=== PATIENT | male | born 1965 ===

== ENCOUNTER 2016-10-01 09:30 | Inpatient (IN) | payer MEDICARE ==
[2016-10-01 09:30] VITALS: BMI 31.8
[2016-10-01 11:16] LABS: BASO # 0.1 K/uL (0.0-0.2); BASO % 0.6 % (0.0-2.0); EOS % 0.2 % (0.0-4.0); HEMOGLOBIN 13.3 g/dL (12.0-18.0); LYMPH # 2.2 K/uL (1.0-4.3); LYMPH % 10.5 % (20.0-40.0); MEAN CELL VOLUME 93.9 fl (80.0-94.0); MEAN CORPUSCULAR HEMOGLOBIN 31.9 pg (27.0-31.0); MEAN PLATELET VOLUME 7.8 fl (7.2-11.7); MONO # 1.5 K/uL (0.0-0.8); NEUT # 17.4 K/uL (1.8-7.0); NEUT % 81.7 % (50.0-75.0); PLATELET COUNT 203 K/uL (130-400); RBC 4.18 Mil/uL (4.40-5.90); WHITE BLOOD COUNT 21.3 K/uL (4.8-10.8)
[2016-10-01 11:25] LABS: ALB/GLOB RATIO 1.2 (1.0-2.1); ALBUMIN 4.1 g/dL (3.5-5.0); ALT/SGPT 27 U/L (21-72); AST/SGOT 14 U/L (17-59); BLOOD UREA NITROGEN 8 mg/dl (9-20); CALCIUM 8.8 mg/dL (8.4-10.2); GFR AFRICAN-AMERICAN > 60; GFR NON-AFRICAN AMERICAN > 60
[2016-10-01 12:13] LABS: BANDS 2 % (0-2); LYMPHOCYTE 18 % (20-50); MONOCYTE 1 % (0-10); NEUTROPHIL 79 % (42-75); PLATELET ESTIMATE NORMAL (NORMAL); TOTAL CELLS COUNTED 100
[2016-10-01 12:14] LABS: ANISOCYTOSIS SLIGHT; LARGE PLATELETS PRESENT; POIKILOCYTOSIS SLIGHT; STOMATOCYTES SLIGHT
--- NOTE | 2016-10-01 12:16 | ED PDOC ---
HPI: Male Pain Time Seen by Provider: 10/01/16 09:38 Chief Complaint (Nursing): Male Genitourinary Chief Complaint (Provider): R groin/testicle pain History Per: Patient History/Exam Limitations: no limitations (3) Onset/Duration Of Symptoms: Days Quality Of Discomfort: Sharp Associated Symptoms: Nausea, Urinary Symptoms Alleviating Factors: None Additional History Per: Prior Records Additional Complaint(s): 51yo male hx HIV (undetectable VL per him) presents c/o 3 days of R testicle pain, now with groin pain and urinary frequency. Denies trauma or injury to groin. States R testicle now enlarged compared to left. Denies penile discharge , fever or back pain. States not sexually active in "quite some time" and only known STD was syphilis many years ago. Past Medical History Reviewed: Historical Data, Nursing Documentation, Vital Signs Vital Signs: Last Vital Signs Temp 97 F L 10/01/16 09:35 Pulse 69 10/01/16 09:35 Resp BP 114/72 10/01/16 09:35 Pulse Ox 99 10/01/16 09:35 - Medical History PMH: Depression, Gastritis, HIV, HTN, Hypercholesterolemia Denies: Chronic Kidney Disease - Family History Family History: States: Unknown Family Hx - Social History Current smoker - smoking cessation education provided: No Drugs: Denies - Immunization History Hx Tetanus Toxoid Vaccination: No Hx Influenza Vaccination: No - Home Medications Home Medications: Ambulatory Orders Medication Instructions Recorded Dolutegravir Sodium [Tivicay] 50 mg PO DAILY 07/19/14 Emtricitabine/Tenofovir Diso 1 tab PO DAILY 07/19/14 [Truvada 200 MG-300 MG] Atomoxetine HCl [Strattera] 100 mg PO QAM 10/01/16 Omeprazole [Omeprazole] 20 mg PO DAILY 10/01/16 - Allergies Allergies/Adverse Reactions: Allergies Allergy/AdvReac Type Severity Reaction Status Date / Time ciprofloxacin [From Cipro] Allergy RASH Verified 10/01/16 09:33 ciprofloxacin HCl Allergy RASH Verified 10/01/16 09:33 [From Cipro] Sulfa (Sulfonamide Allergy RASH Verified 10/01/16 09:33 Antibiotics) Review of Systems Constitutional: Negative for: Fever, Chills Cardiovascular: Negative for: Chest Pain, Palpitations Respiratory: Negative for: Cough, Shortness of Breath Gastrointestinal: Positive for: Abdominal Pain. Negative for: Nausea, Vomiting Genitourinary Male: Positive for: Frequency, Scrotal Pain. Negative for: Hematuria Musculoskeletal: Negative for: Neck Pain, Arm Pain, Back Pain Skin: Negative for: Rash, Lesions, Jaundice Neurological: Negative for: Weakness, Numbness, Headache, Dizziness Psych: Positive for: Depression. Negative for: Anxiety, Suicidal ideation Physical Exam - Reviewed Nursing Documentation Reviewed: Yes Vital Signs Reviewed: Yes - Physical Exam Appears: Positive for: Well, Non-toxic, No Acute Distress Head Exam: Positive for: ATRAUMATIC, NORMAL INSPECTION, NORMOCEPHALIC Skin: Positive for: Normal Color, Warm, DRY Eye Exam: Positive for: EOMI, Normal appearance, PERRL ENT: Positive for: Normal ENT Inspection Neck: Positive for: Normal, Painless ROM Cardiovascular/Chest: Positive for: Regular Rate, Rhythm Respiratory: Positive for: CNT, Normal Breath Sounds Gastrointestinal/Abdominal: Positive for: Bowel Sounds, Soft, Tenderness (mild R groin tenderness) Male Genital Exam: Positive for: inguinal tenderness (R), scrotum tenderness (R) , testicular tenderness (R) (+enlarged R testicle). Negative for: erythema Back: Positive for: Normal Inspection Extremity: Positive for: Normal ROM Neurologic/Psych: Positive for: Alert, personal development coach II-XII (intact), Oriented. Negative for: Motor/Sensory Deficits, Aphasia, Facial Droop - Laboratory Results Result Diagrams: 10/01/16 11:10 10/01/16 11:10 - ECG O2 Sat by Pulse Oximetry: 99 Medical Decision Making Medical Decision Making: Workup initiated for acute testicle/ orchitis/ hernia (less likely). bloodwork reviewed, reveals elevated WBC at 21. US testicle: Accession No. : [id number] Patient Name / ID : ISRA LAW / [id number] Exam Date : 10/01/2016 11:47:09 ( Approved ) Study Comment : Sex / Age : M / 51Y Creator : Masoud Rowell MD Dictator : Masoud Rowell MD Government Services Professional : Paver Operator : Masoud Rowell MD Approver2 : Report Date : 10/01/2016 12:33:12 My Comment : HISTORY: R testicular pain/swelling, HIV TECHNIQUE: Realtime sonography through the scrotum with color and doppler flow. COMPARISON: None Available. FINDINGS: RIGHT TESTICLE: Measures 3.1 x 2.7 x 4 cm. Normal echotexture hypervascular right testicle RIGHT EPIDIDYMIS: Epididymal head measures 2 x 2.6 cm. Enlarged, edematous hyperemic right epididymis LEFT TESTICLE: Measures 2.6 x 1.6 x 3.3 cm. Normal echotexture and flow. LEFT EPIDIDYMIS: Epididymal head measures 1.2 x 0.8 cm. Grossly unremarkable appearance with normal flow. HYDROCELE: Large complex including septated right hydrocele. VARICOCELE: None. OTHER FINDINGS: None. IMPRESSION: 1. Evidence of unilateral, right epididymitis and orchitis. 2. Complex, moderately sized right hydrocele the overall appearance likely reflective of infectious/inflammatory process (biopsy all). --------- D/w Dr Marshall, rec ID consult, start Rocephin and Doxy. Will consult. Blood/urine Cx sent. D/w Dr Rush infectious disease, 1250pm- rec starting Zozsyn, not rocephin. Orders updated. Patient updated on findings. Admit FP service for IV abx. D/w Dr Portillo FP service. Disposition - Clinical Impression Clinical Impression: Orchitis, Acute epididymitis, HIV (human immunodeficiency virus infection), Leukocytosis - Patient ED Disposition Is Patient to be Admitted: Yes Counseled Patient/Family Regarding: Studies Performed - Disposition Disposition Time: 12:25 Condition: FAIR Forms: Typesafe (Sinhala) - Pt Status Changed To: Hospital Disposition Of: Inpatient - Admit Certification Admit to Inpatient:: After my assessment, the patient will require hospitalization for at least two midnights. This is because of the severity of symptoms shown, intensity of services needed, and/or the medical risk in this patient being treated as an outpatient. - POA Present On Arrival: None
--- NOTE | 2016-10-01 12:35 | US ---
HISTORY: R testicular pain/swelling, HIV TECHNIQUE: Realtime sonography through the scrotum with color and doppler flow. COMPARISON: None Available. FINDINGS: RIGHT TESTICLE: Measures 3.1 x 2.7 x 4 cm. Normal echotexture hypervascular right testicle RIGHT EPIDIDYMIS: Epididymal head measures 2 x 2.6 cm. Enlarged, edematous hyperemic right epididymis LEFT TESTICLE: Measures 2.6 x 1.6 x 3.3 cm. Normal echotexture and flow. LEFT EPIDIDYMIS: Epididymal head measures 1.2 x 0.8 cm. Grossly unremarkable appearance with normal flow. HYDROCELE: Large complex including septated right hydrocele. VARICOCELE: None. OTHER FINDINGS: None. IMPRESSION: 1. Evidence of unilateral, right epididymitis and orchitis. 2. Complex, moderately sized right hydrocele the overall appearance likely reflective of infectious/inflammatory process (biopsy all).
[2016-10-01] MEDS ORDERED: Piperacillin/Tazobact 4.5 GM in Sodium Chloride 0.9% 100 ML IVPB STA (12:55)
[2016-10-01] MEDS ORDERED: cefTRIAXone (Rocephin) 1 gm Inj ONE (12:57)
--- NOTE | 2016-10-01 13:11 | CP.PCM.CON ---
History of Present Illness - History of Present Illness History of Present Illness: Infectious Disease Consult Note- asked to see this patient at the request of family practie team and for epididymitis, leukocytosis and help with antibiotic management. HPI- patient is a 51 year old male with PMH of HIV , HTN who presents with right testicular swelling and pain and groin pain for the past 4 days. Pt. sattes it began as slight pain in ritgh testicle and groin are and it progressively got worse and more painful and more swelling adn redness. He denies any dysurea, denies any penile discharge. He denies any reent sexual activity. He also states he f/u with at [facility] and his HIV is well controlled with UD VL ( as per pt). He is on truvada and tivicay . He denies ever having anything like this before. He states few years ago he was diagnosed with syphilis and had 3 PCN injections . in ED he was found to have wbc of 22,000 and US showed epididymitis and orchitis. He denies any fever or chills. PMHx: HIV (last CD4 783, undetectable viral load on 08/04) HTN HLD Depression Surgical Hx: Varicose Stripping PFHx: Adopted, little knowledge of his family PSocial Hx: Smokes 1 pack per week, smoking since age 16th, +[place], denies cocaine or IVDU. Sexual Hx: Sexually active with men, Last sexually active 1 month ago, 2 partners this year, uses condoms 75% of the time. Last tested for STD's in Review of Systems - Review of Systems Review of Systems: ROS- denies any fever or chills, denies any JOSÉ, denies any cough, denies any sob, denies any chest pain, denies any abd. pain, denies any n/v, denies any diarrhea , denies any dysurea, denies any penile discharge c/o right groin and testicular pain and swelling for past 4 days denies any recent sexual activity denies any injury tot he area Past Patient History - Past Medical History & Family History Past Medical History?: Yes - Past Social History Smoking Status: Current Some Days Smoker Alcohol: Occasional Home Situation {Lives}: Alone - CARDIAC Hx Hypercholesterolemia: Yes Hx Hypertension: Yes - PULMONARY Hx Respiratory Disorders: No - NEUROLOGICAL Hx Neurological Disorder: No - HEENT Hx HEENT Problems: No - RENAL Hx Chronic Kidney Disease: No - ENDOCRINE/METABOLIC Hx Endocrine Disorders: No - HEMATOLOGICAL/ONCOLOGICAL Hx Human Immunodeficiency Virus (HIV): Yes - INTEGUMENTARY Hx Dermatological Problems: No - MUSCULOSKELETAL/RHEUMATOLOGICAL Hx Musculoskeletal Disorders: No - GASTROINTESTINAL Hx Gastritis: Yes - GENITOURINARY/GYNECOLOGICAL Hx Genitourinary Disorders: No - PSYCHIATRIC Hx Depression: Yes - SURGICAL HISTORY Hx Surgeries: Yes Hx Angiogram: Yes ([facility] F[facility] 07/21/14) Other/Comment: STRIPPING & LIGATION OF VEINS RT & LT - ANESTHESIA Hx Anesthesia: Yes Hx Anesthesia Reactions: No Hx Malignant Hyperthermia: No Meds Allergies/Adverse Reactions: Allergies Allergy/AdvReac Type Severity Reaction Status Date / Time ciprofloxacin [From Cipro] Allergy RASH Verified 10/01/16 09:33 ciprofloxacin HCl Allergy RASH Verified 10/01/16 09:33 [From Cipro] Sulfa (Sulfonamide Allergy RASH Verified 10/01/16 09:33 Antibiotics) - Medications Medications: Current Medications Doxycycline Hyclate 100 mg/ (Sodium Chloride) 100 mls @ 100 mls/hr IVPB STAT STA Stop: 10/01/16 13:38 Piperacillin Sod/Tazobactam (Sod 4.5 gm/ Sodium Chloride) 100 mls @ 100 mls/hr IVPB STAT STA Stop: 10/01/16 13:54 Physical Exam - Constitutional Appears: No Acute Distress - Head Exam Head Exam: ATRAUMATIC - Eye Exam Eye Exam: EOMI, PERRL - ENT Exam ENT Exam: Normal Oropharynx - Neck Exam Neck exam: Positive for: Full Rom - Respiratory Exam Respiratory Exam: Clear to Auscultation Bilateral, NORMAL BREATHING PATTERN - Cardiovascular Exam Cardiovascular Exam: RRR, +S1, +S2 - GI/Abdominal Exam GI & Abdominal Exam: Normal Bowel Sounds, Soft Additional comments: NT, ND - Exam Additional comments: Right inguinal region swelling and right testiuclar swelling and minimal erythema No discharge noted (nurse present in room during exam). - Extremities Exam Extremities exam: Positive for: normal inspection - Neurological Exam Neurological exam: Alert, Oriented x3 Results - Vital Signs Recent Vital Signs: Last Vital Signs Temp 97 F L 10/01/16 09:35 Pulse 69 10/01/16 09:35 Resp BP 114/72 10/01/16 09:35 Pulse Ox 99 10/01/16 12:57 - Labs Result Diagrams: 10/01/16 11:10 10/01/16 11:10 Labs: Laboratory Results - last 72 hr 10/01/16 10/01/16 10/01/16 11:10 11:10 11:19 WBC 21.3 H D RBC 4.18 L Hgb 13.3 Hct 39.2 MCV 93.9 MCH 31.9 H MCHC 34.0 RDW 14.0 Plt Count 203 MPV 7.8 Neut % (Auto) 81.7 H Lymph % (Auto) 10.5 L Bollinger % (Auto) 7.0 Eos % (Auto) 0.2 Baso % (Auto) 0.6 Neut # 17.4 H Lymph # 2.2 Bollinger # 1.5 H Eos # 0.0 Baso # 0.1 Neutrophils % (Manual) 79 H Band Neutrophils % 2 Lymphocytes % (Manual) 18 L Monocytes % (Manual) 1 Platelet Estimate Normal Large Platelets Present Poikilocytosis (manual Slight Anisocytosis (manual) Slight Stomatocytes Slight Sodium 136 Potassium 3.7 Chloride 100 Carbon Dioxide 28 Anion Gap 12 BUN 8 L Creatinine 0.9 Est GFR ( Amer) > 60 Est GFR (Non-Af Amer) > 60 Random Glucose 106 Calcium 8.8 Total Bilirubin 0.5 AST 14 L D ALT 27 Alkaline Phosphatase 98 Total Protein 7.4 Albumin 4.1 Globulin 3.3 Albumin/Globulin Ratio 1.2 Urine Color Yellow Urine Clarity Sl.cloudy Urine pH 6 Ur Specific [place] >= 1.030 Urine Protein 100 mg/dl Urine Glucose (UA) Neg Urine Ketones Negative Urine Blood Small Urine Nitrate Negative Urine Bilirubin Negative Urine Urobilinogen 0.2 Ur Leukocyte Esterase Small Urine RBC (Auto) 12 H Urine Microscopic WBC 26 H Urine Bacteria Rare Accession No. : [id number] Patient Name / ID : ISRA ALW / [id number] Exam Date : 10/01/2016 11:47:09 ( Approved ) Study Comment : Sex / Age : M / 51Y Creator : Masoud Rowell MD Dictator : Masoud Rowell MD Hydrometallurgical Engineer : Flame Burner : Masoud Rowell MD Approver2 : Report Date : 10/01/2016 12:33:12 My Comment : HISTORY: R testicular pain/swelling, HIV TECHNIQUE: Realtime sonography through the scrotum with color and doppler flow. COMPARISON: None Available. FINDINGS: RIGHT TESTICLE: Measures 3.1 x 2.7 x 4 cm. Normal echotexture hypervascular right testicle RIGHT EPIDIDYMIS: Epididymal head measures 2 x 2.6 cm. Enlarged, edematous hyperemic right epididymis LEFT TESTICLE: Measures 2.6 x 1.6 x 3.3 cm. Normal echotexture and flow. LEFT EPIDIDYMIS: Epididymal head measures 1.2 x 0.8 cm. Grossly unremarkable appearance with normal flow. HYDROCELE: Large complex including septated right hydrocele. VARICOCELE: None. OTHER FINDINGS: None. IMPRESSION: 1. Evidence of unilateral, right epididymitis and orchitis. 2. Complex, moderately sized right hydrocele the overall appearance likely reflective of infectious/inflammatory process (biopsy all Assessment & Plan - Assessment and Plan (Free Text) Assessment: A/P- 51 year old male with HIV ( well controlled) , HTN admitted with right epididymitis and leukocytois. most common cause of epidymitis in men is GC/chlamydia and in men >35 yesr of age also gram neg and entric organismas are possible etiologies. Hence advise to send Urien for GC/chlamydia and after snding the sepcimen treat empirically for these two. hence advise to give ceftriaxone 250mg IM x 1. advise to continue with the doxycycline that was already initiated in ED as that covers for chlamydia. advise to check UA and urine cx. check blood cx x 2. advise to start IV zosyn for broader gram neg coverage pending further results. check RPR and check HSV 1/2 IGG. pt. to continue with his current HAART meds. all above d/w patient at length and he verbalizes full understanding of all above. Thank you for allowing me to take part in the care of this patient.
--- NOTE | 2016-10-01 14:25 | CP.PCM.HP ---
History of Present Illness - History of Present Illness History of Present Illness: HPI: 51yo male with PMHx of HIV, HTN, HLD and depression presents with a 4 day history of intermitent R testicular pain and swelling that has been getting progressively worse. He localizes the pain throughout his R testicle and along his lower abdomen.He states the pain is exacerbated by movement, tender to touch and is relieved relieved by Motrin, Tramadol, or cannabis . ROS. + Urinary urgency. Denies fever, chills, dysuria, penile discharge or bleeding, urinary frequency, frequency, back pain, N/V/D PMHx: HIV (last CD4 783, undetectable viral load on 08/04) HTN HLD Depression Surgical Hx: Varicose Stripping PFHx: Adopted, little knowledge of his family PSocial Hx: Smokes 1 pack per week, smoking since age 16th, +[place], denies cocaine or IVDU. Sexual Hx: Sexually active with men, Last sexually active 1 month ago, 2 partners this year, uses condoms 75% of the time. Last tested for STD's in ED course: Vitals: Temp 98, HR 67, BP 120/70, RR 19, 98 on Rm Air CBC: WBC 21.3 CMP nml UCx, CRP pending UA: + Urine RBC, + Urine WBC Meds: 2mg Morphine IV x2, Doxycycline 100mg Zosyn 4.5mg Testicular U/S: Right Epididymis enlarged and edematous c/w epididymitits, Large right hydrocele Present on Admission - Present on Admission Any Indicators Present on Admission: No History of DVT/PE: No History of Uncontrolled Diabetes: No Urinary Catheter: No Decubitus Ulcer Present: No Past Patient History - Past Medical History & Family History Past Medical History?: Yes - Past Social History Drugs: Denies - CARDIAC Hx Hypercholesterolemia: Yes Hx Hypertension: Yes - PULMONARY Hx Respiratory Disorders: No - NEUROLOGICAL Hx Neurological Disorder: No - HEENT Hx HEENT Problems: No - RENAL Hx Chronic Kidney Disease: No - ENDOCRINE/METABOLIC Hx Endocrine Disorders: No - HEMATOLOGICAL/ONCOLOGICAL Hx Human Immunodeficiency Virus (HIV): Yes - INTEGUMENTARY Hx Dermatological Problems: No - MUSCULOSKELETAL/RHEUMATOLOGICAL Hx Musculoskeletal Disorders: No - GASTROINTESTINAL Hx Gastritis: Yes - GENITOURINARY/GYNECOLOGICAL Hx Genitourinary Disorders: No - PSYCHIATRIC Hx Depression: Yes - SURGICAL HISTORY Hx Surgeries: Yes Hx Angiogram: Yes ([facility] FEM 07/21/14) Other/Comment: STRIPPING & LIGATION OF VEINS RT & LT - ANESTHESIA Hx Anesthesia: Yes Hx Anesthesia Reactions: No Hx Malignant Hyperthermia: No Meds Allergies/Adverse Reactions: Allergies Allergy/AdvReac Type Severity Reaction Status Date / Time ciprofloxacin [From Cipro] Allergy RASH Verified 10/01/16 09:33 ciprofloxacin HCl Allergy RASH Verified 10/01/16 09:33 [From Cipro] Sulfa (Sulfonamide Allergy RASH Verified 10/01/16 09:33 Antibiotics) Physical Exam - Constitutional Appears: Well, No Acute Distress - Head Exam Head Exam: ATRAUMATIC - Respiratory Exam Respiratory Exam: Clear to Auscultation Bilateral. absent: Rales, Wheezes - Cardiovascular Exam Cardiovascular Exam: REGULAR RHYTHM, +S1, +S2. absent: Systolic Murmur - GI/Abdominal Exam GI & Abdominal Exam: Normal Bowel Sounds, Tenderness. absent: Distended, Firm, Guarding, Organomegaly Additional comments: Lower quadrant tenderness to palpation (Right>Left). No gaurding, rigidity, - Exam Additional comments: Genital Exam: uncircumcised. Right Testicle: Swollen, Low hanging, hyperpigemented, Irregular on palpation, tender to palpation, warm Results - Vital Signs Recent Vital Signs: Last Vital Signs Temp 98 F 10/01/16 14:07 Pulse 67 10/01/16 14:07 Resp 19 10/01/16 14:07 BP 120/70 10/01/16 14:07 Pulse Ox 98 10/01/16 13:22 - Labs Result Diagrams: 10/01/16 11:10 10/01/16 11:10 Assessment & Plan (1) Acute epididymitis Status: Acute - Assessment and Plan (Free Text) Assessment: 51yo male with PMHx of HIV, HTN, and depression presents with a 4 day history of unilateral R testicular pain and swelling. #Testicular Pain, Acute -Likely 2/2 Epididymitis -Afebrile, Leukocytosis, -UA +RBC, +WBC -CMP nml -Testicular US: Enlargement and edematous R. epididymis with large right hydrocele -ID & Urology Consulted- follow plan as recommended -Tyelenol 650 PO prn (mild pain), Torodol 30mg IV prn (moderate pain), Tramadol 50 mg PO q4 prn (severe) -Doxycycline 100mg IV q12 -Zosyn 4.5gm in NS q8 -F/U BCx, UCx, CRP #HIV, asymptomatic -Last CD4 783, CD4% 40, HIV RNA non reactive (08/04) -Dolutegravis 50mg PO daily -Emtricitabine 1 tab PO Daily #HTN -Currently normotensive -c/w Metrolopol 25mg PO q12 #HLD -C/w Atorvastatin 10mg PO HS #Depression -C/w Atomoxetine 100mg PO qam #DVT PPX -SCD -Lovenox 40mg SC #Diet -Heart Health
[2016-10-01 14:27] LABS: URINE BILIRUBIN NEGATIVE (NEGATIVE); URINE CLARITY SL.CLOUDY (Clear); URINE COLOR YELLOW (YELLOW); URINE GLUCOSE (UA) NEG (Normal)
[2016-10-01 14:28] LABS: PH,URINE 6 (5.0-8.0); URINE BLOOD SMALL (NEGATIVE); URINE LEUKOCYTE ESTERASE SMALL Leu/uL (Negative); URINE NITRATE NEGATIVE (NEGATIVE); URINE UROBILINOGEN 0.2 mg/dL (0.2-1.0)
[2016-10-01 14:29] LABS: URINE BACTERIA RARE (<OCC)
[2016-10-01] MEDS: Piperacillin/Tazobact 4.5 GM in Sodium Chloride 0.9% 100 ML IVPB SCH (17:00)
[2016-10-01] MEDS ORDERED: cefTRIAXone (Rocephin) 250 mg Inj IM ONE (18:00)
[2016-10-02] MEDS: Piperacillin/Tazobact 4.5 GM in Sodium Chloride 0.9% 100 ML IVPB SCH ×3 (00:18→17:28)
[2016-10-02 07:17] LABS: ALB/GLOB RATIO 1.1 (1.0-2.1); ALBUMIN 3.8 g/dL (3.5-5.0); ALT/SGPT 27 U/L (21-72); AST/SGOT 19 U/L (17-59); BLOOD UREA NITROGEN 9 mg/dl (9-20); CALCIUM 8.9 mg/dL (8.4-10.2); GFR AFRICAN-AMERICAN > 60; GFR NON-AFRICAN AMERICAN > 60
[2016-10-02 07:23] LABS: BASO % 0.2 % (0.0-2.0); EOS # 0.1 K/uL (0.0-0.7); EOS % 0.6 % (0.0-4.0); LYMPH # 2.1 K/uL (1.0-4.3); LYMPH % 11.6 % (20.0-40.0); MEAN CELL VOLUME 93.8 fl (80.0-94.0); MEAN CORPUSCULAR HEMOGLOBIN 31.9 pg (27.0-31.0); MEAN PLATELET VOLUME 8.4 fl (7.2-11.7); MONO % 5.5 % (0.0-10.0); NEUT # 14.9 K/uL (1.8-7.0); NEUT % 82.1 % (50.0-75.0); RBC 4.08 Mil/uL (4.40-5.90); RED CELL DISTRIBUTION WIDTH 13.7 % (11.5-14.5); WHITE BLOOD COUNT 18.2 K/uL (4.8-10.8)
--- NOTE | 2016-10-02 08:58 | CP.PCM.PN ---
Subjective - Date & Time of Evaluation Date of Evaluation: 10/02/16 Time of Evaluation: 07:00 - Subjective Subjective: Patient seen and evaluated at the bedside this morning. Noted to be sleeping comfortably in bed. States that he has R testicular pain only when moving but is comfortable at rest. Reports that the swelling has improved since yesterday. Denies fever, chills, dysuria, frequency, urgency, hematuria, back pain, abdominal pain, n/v/c. Patient encouraged to get out of bed a few times a day. Patient examined by the principal technical writer with the presence of medical students Cyril and Katerin. Objective - Vital Signs/Intake and Output Vital Signs (last 24 hours): Temp Pulse Resp BP Pulse Ox 98.4 F 58 L 20 117/78 97 10/02/16 08:51 10/02/16 08:51 10/02/16 08:51 10/02/16 08:51 10/02/16 08:51 - Medications Medications: Current Medications Acetaminophen (Tylenol 325mg Tab) 650 mg PO Q6 PRN PRN Reason: Pain, Mild (1-3) Acetaminophen (Tylenol 325mg Tab) 650 mg PO Q6 PRN PRN Reason: Fever >100.4 F Last Admin: 10/01/16 22:27 Dose: 650 mg Atomoxetine HCl (Strattera) 100 mg PO QAM [facility] Atorvastatin Calcium (Lipitor) 10 mg PO HS [facility] Last Admin: 10/01/16 21:13 Dose: 10 mg Dolutegravir Sodium (Tivicay) 50 mg PO DAILY [facility] Emtricitabine/Tenofovir (Truvada 200 Mg-300 Mg) 1 tab PO DAILY [facility] Enoxaparin Sodium (Lovenox) 40 mg SC DAILY [facility] PRN Reason: Protocol Doxycycline Hyclate 100 mg/ (Sodium Chloride) 100 mls @ 100 mls/hr IVPB Q12 [facility] Last Admin: 10/01/16 20:50 Dose: 100 mls/hr Piperacillin Sod/Tazobactam (Sod 4.5 gm/ Sodium Chloride) 100 mls @ 100 mls/hr IVPB Q8 [facility] Last Admin: 10/02/16 00:18 Dose: 100 mls/hr Ketorolac Tromethamine (Toradol) 30 mg IVP Q6 PRN PRN Reason: Pain, moderate (4-7) Metoprolol Tartrate (Lopressor) 25 mg PO Q12@0600,1800 NIXON Last Admin: 10/02/16 06:08 Dose: 25 mg Tramadol HCl (Ultram) 50 mg PO Q4 PRN PRN Reason: Pain, severe (8-10) - Labs Labs: 10/02/16 05:30 10/02/16 05:30 - Constitutional Appears: Well, Non-toxic, No Acute Distress - Respiratory Exam Respiratory Exam: Clear to Ausculation Bilateral. absent: Chest Wall Tenderness , Rales, Wheezes - Cardiovascular Exam Cardiovascular Exam: REGULAR RHYTHM, +S1, +S2. absent: Murmur - GI/Abdominal Exam GI & Abdominal Exam: Soft, Tenderness, Normal Bowel Sounds. absent: Guarding, Rigid, Organomegaly Additional comments: Tender to palpation in right lower quadrant. No rebound tenderness - Exam Exam: Scrotal Swelling, Testicular Tenderness. absent: Circumcision, Uretheral Discharge Additional comments: Right testicle is low hanging, swollen (improved), erythematous, warm, tender to palpation. No rashes over skin, uretheral dsicharge. - Extremities Exam Extremities Exam: Normal Capillary Refill. absent: Calf Tenderness, Pedal Edema - Neurological Exam Neurological Exam: Alert, Awake, Oriented x3 - Psychiatric Exam Psychiatric exam: Normal Affect Assessment and Plan (1) Acute epididymitis Status: Acute - Assessment and Plan (Free Text) Assessment: 51yo male with PMHx of HIV, HTN, and depression presents with a 4 day history of unilateral R testicular pain and swelling. #Testicular Pain, Acute -Likely 2/2 Epididymo-orchitis -Sepsis resolved. Afebrile (spiked fever last night 101.2), Leukocytosis improving (18 today) -UA: +RBC, +WBC -BCx, UCx- no growth 24hrs -Testicular US: Enlargement and inflamed epididymitis and orchitis with large right hydrocele -ID consult appreciated- Likely Epididymitis, c/w ABX regimen (Dr. Rush) -Urology Consulted- follow plan as recommended -Tylenol 650 PO prn (mild pain), Torodol 30mg IV prn (moderate pain), Tramadol 50 mg PO q4 prn (severe) -Ceftriaxone 250mg IM x1 -Doxycycline 100mg IV q12 -Zosyn 4.5gm in NS q8 -F/U CBC, CMP, CRP, GC amplification, RPR #HIV, asymptomatic -Last CD4 783, CD4% 40, HIV RNA non reactive (08/04) -Dolutegravis 50mg PO daily (Tivicay) -Emtricitabine/Tenofovir 1 tab PO Daily (Travuda)- not formulary; Pharmacy will deliver #HTN -Currently normotensive in the 130's sytolic -c/w Metrolopol 25mg PO q12 #HLD -C/w Atorvastatin 10mg PO HS #Depression -C/w Atomoxetine 100mg PO qam #DVT PPX -SCD -Lovenox #Diet -Heart Health
[2016-10-02] MEDS: Enoxaparin 40 mg Syringe SC SCH (09:39)
[2016-10-02] MEDS: Emtricitabine-Tenofovir 200 mg-300 mg Tab PO SCH (09:39)
[2016-10-02] MEDS: Atomoxetine HCl 25mg Cap PO SCH (09:40)
[2016-10-02] MEDS ORDERED: Chlorhexidine Gluconate 1 APPL/PKT TP ONE (10:55)
[2016-10-02] MEDS ORDERED: TIVICAY 50 MG PO SCH (14:30)
[2016-10-02 16:24] VITALS: RESP 20
--- NOTE | 2016-10-02 20:34 | CON ---
COMPREHENSIVE UROLOGY CONSULTATION DATE OF CONSULTATION: 10/02/2016 TIME OF CONSULTATION: Roughly 11 a.m. BRIEF HISTORY: The patient is a 51-year-old male with history of diagnosis of HIV since 2004, which is currently stable who presents with a 5-day history of right testicular swelling and pain requiring him to come to [facility] ER. Scrotal ultrasound showed acute epidermal orchitis and he had an elevated white count of 21.3 requiring admission on 10/01/2016. The patient was started on Zosyn and Vibramycin IV antibiotics. The patient says that his pain is somewhat less today on the IV antibiotics and his white count has dropped from 21.2 to 18.2 this morning, 10/02/2016. He denies any prior history of any prostatitis or epididymitis. His only past surgical history was multiple vein stripping of both lower extremities with the last one done in 1999. He has a positive social history of some tobacco and alcohol use. HE HAS NO KNOWN ALLERGIES TO ANY MEDICATIONS. PHYSICAL EXAMINATION: GENERAL: He is well-developed, well-nourished male. He is alert. He is oriented. HEENT: Grossly within normal limits. NECK: Supple. Thyroid not palpable. ABDOMEN: Soft and not distended. He does have some right lower quadrant tenderness. Left side is completely negative. GENITALIA: He is not circumcised with a normal glans meatus without any rashes or lesions visualized. No history or evidence of any urethral discharge. His testicles are down bilaterally. The left testicle is completely normal without any swelling or induration and is nontender without any masses. The right testicle, however, is swollen and at least 2 times the size of the left testicle. RECTAL: Normal rectal tone without fluctuance or masses. Prostate is average sized, smooth, symmetrical and nontender without nodules or indurations with a palpable median sulcus indicating a relatively negative rectal examination. LABORATORY DATA: His laboratory evaluation today, 10/02/2016, shows a decreasing white count of 18.2, hemoglobin 13.0, hematocrit 38.3, and a platelet count of 206,000. His chem profile today shows a sodium of 138, potassium 3.5, chloride 100, CO2 of 32, BUN and creatinine 9 and 1.1 respectively with GFR greater than 60. Random glucose is 110, calcium is 8.9, and total bilirubin is 0.7. ALT was 19, ALT 27, alkaline phosphatase 106. Urinalysis showed color was yellow, clarity was cloudy, PH was 6, specific gravity greater than 1.030, protein was 100, glucose was negative, ketones were negative, blood was small, nitrite was negative, bilirubin was negative, urobilinogen 0.2, leukocyte esterase small. There were 12 rbc's and 26 wbc's per high power field with rare bacteria indicating most likely a urinary tract infection associated with the right epidermal orchitis. DIAGNOSTIC IMPRESSION: 1. Right epidermal orchitis. 2. Possible urinary tract infection. PLAN: Check the urine cultures and just continue the patient on his current IV antibiotic regimen and patient can eventually be discharged home on oral antibiotics for at least ten days pending any culture and sensitivity reports. Tanner Marshall MD SYLWIA
[2016-10-03] MEDS: Piperacillin/Tazobact 4.5 GM in Sodium Chloride 0.9% 100 ML IVPB SCH ×2 (00:42→11:09)
[2016-10-03 06:34] LABS: HEMOGLOBIN 12.7 g/dL (12.0-18.0); MEAN CELL VOLUME 94.1 fl (80.0-94.0); RBC 3.98 Mil/uL (4.40-5.90); RED CELL DISTRIBUTION WIDTH 13.6 % (11.5-14.5); WHITE BLOOD COUNT 9.6 K/uL (4.8-10.8)
[2016-10-03 06:52] LABS: ALBUMIN 3.5 g/dL (3.5-5.0); ALT/SGPT 30 U/L (21-72); AST/SGOT 22 U/L (17-59); BLOOD UREA NITROGEN 15 mg/dl (9-20); GFR AFRICAN-AMERICAN > 60; GFR NON-AFRICAN AMERICAN > 60
[2016-10-03 07:38] VITALS: BP 115/59; PULSE 50; TEMP 98; O2SAT 97
[2016-10-03] MEDS: Emtricitabine-Tenofovir 200 mg-300 mg Tab PO SCH (08:28)
[2016-10-03] MEDS: Atomoxetine HCl 25mg Cap PO SCH (08:28)
[2016-10-03] MEDS: Enoxaparin 40 mg Syringe SC SCH (08:29)
--- NOTE | 2016-10-03 08:44 | CP.PCM.DIS ---
Provider - Provider Date of Admission: 10/01/16 12:41 Attending physician: Alyson Almonte MD Diagnosis - Discharge Diagnosis (1) Acute epididymitis Status: Acute Hospital Course - Lab Results Lab Results: Micro Results 10/02/16 07:00 Blood Blood Culture - Preliminary NO GROWTH AFTER 24 HOURS 10/01/16 13:00 Blood Blood Culture - Preliminary NO GROWTH AFTER 24 HOURS 10/01/16 12:55 Urine Urine Culture - Final No Growth (<1,000 CFU/ML) Most Recent Lab Values WBC 9.6 K/uL (4.8-10.8) 10/03/16 05:30 RBC 3.98 Mil/uL (4.40-5.90) L 10/03/16 05:30 Hgb 12.7 g/dL (12.0-18.0) 10/03/16 05:30 Hct 37.5 % (35.0-51.0) 10/03/16 05:30 MCV 94.1 fl (80.0-94.0) H 10/03/16 05:30 MCH 32.0 pg (27.0-31.0) H 10/03/16 05:30 MCHC 34.0 g/dL (33.0-37.0) 10/03/16 05:30 RDW 13.6 % (11.5-14.5) 10/03/16 05:30 Plt Count 195 K/uL (130-400) 10/03/16 05:30 MPV 8.4 fl (7.2-11.7) 10/02/16 05:30 Neut % (Auto) 82.1 % (50.0-75.0) H 10/02/16 05:30 Lymph % (Auto) 11.6 % (20.0-40.0) L 10/02/16 05:30 [place] % (Auto) 5.5 % (0.0-10.0) 10/02/16 05:30 Eos % (Auto) 0.6 % (0.0-4.0) 10/02/16 05:30 Baso % (Auto) 0.2 % (0.0-2.0) 10/02/16 05:30 Neut # 14.9 K/uL (1.8-7.0) H 10/02/16 05:30 Lymph # 2.1 K/uL (1.0-4.3) 10/02/16 05:30 [place] # 1.0 K/uL (0.0-0.8) H 10/02/16 05:30 Eos # 0.1 K/uL (0.0-0.7) 10/02/16 05:30 Baso # 0.0 K/uL (0.0-0.2) 10/02/16 05:30 Neutrophils % (Manual) 79 % (42-75) H 10/01/16 11:10 Band Neutrophils % 2 % (0-2) 10/01/16 11:10 Lymphocytes % (Manual) 18 % (20-50) L 10/01/16 11:10 Monocytes % (Manual) 1 % (0-10) 10/01/16 11:10 Platelet Estimate Normal (NORMAL) 10/01/16 11:10 Large Platelets Present 10/01/16 11:10 Poikilocytosis (manual Slight 10/01/16 11:10 Anisocytosis (manual) Slight 10/01/16 11:10 Stomatocytes Slight 10/01/16 11:10 Sodium 140 mmol/l (132-148) 10/03/16 05:30 Potassium 3.9 MMOL/L (3.6-5.0) 10/03/16 05:30 Chloride 103 mmol/L (98-107) 10/03/16 05:30 Carbon Dioxide 27 mmol/L (22-30) 10/03/16 05:30 Anion Gap 14 (10-20) 10/03/16 05:30 BUN 15 mg/dl (9-20) 10/03/16 05:30 Creatinine 1.1 mg/dL (0.8-1.5) 10/03/16 05:30 Est GFR ( Amer) > 60 10/03/16 05:30 Est GFR (Non-Af Amer) > 60 10/03/16 05:30 Random Glucose 115 mg/dL (75-110) H 10/03/16 05:30 Calcium 9.0 mg/dL (8.4-10.2) 10/03/16 05:30 Total Bilirubin 0.6 mg/dl (0.2-1.3) 10/03/16 05:30 AST 22 U/L (17-59) 10/03/16 05:30 ALT 30 U/L (21-72) 10/03/16 05:30 Alkaline Phosphatase 89 U/L (38-126) 10/03/16 05:30 C-React Prot High Sens > 15.00 mg/L (1.00-3.00) H 10/01/16 17:20 Total Protein 7.0 G/DL (6.3-8.2) 10/03/16 05:30 Albumin 3.5 g/dL (3.5-5.0) 10/03/16 05:30 Globulin 3.5 gm/dL (2.2-3.9) 10/03/16 05:30 Albumin/Globulin Ratio 1.0 (1.0-2.1) 10/03/16 05:30 Urine Color Yellow (YELLOW) 10/01/16 11:19 Urine Clarity Sl.cloudy (Clear) 10/01/16 11:19 Urine pH 6 (5.0-8.0) 10/01/16 11:19 Ur Specific [place] >= 1.030 (1.003-1.030) 10/01/16 11:19 Urine Protein 100 mg/dl mg/dL (NEGATIVE) 10/01/16 11:19 Urine Glucose (UA) Neg mg/dL (Normal) 10/01/16 11:19 Urine Ketones Negative mg/dL (NEGATIVE) 10/01/16 11:19 Urine Blood Small (NEGATIVE) 10/01/16 11:19 Urine Nitrate Negative (NEGATIVE) 10/01/16 11:19 Urine Bilirubin Negative (NEGATIVE) 10/01/16 11:19 Urine Urobilinogen 0.2 mg/dL (0.2-1.0) 10/01/16 11:19 Ur Leukocyte Esterase Small [place]ayeli/uL (Negative) 10/01/16 11:19 Urine RBC (Auto) 12 /hpf (0-3) H 10/01/16 11:19 Urine Microscopic WBC 26 /hpf (0-5) H 10/01/16 11:19 Urine Bacteria Rare (<OCC) 10/01/16 11:19 RPR Nonreactive (NONREACTIVE) 10/01/16 19:10 Discharge Exam - Head Exam Head Exam: ATRAUMATIC Discharge Plan - Follow Up Plan Condition: FAIR Disposition: HOME/ ROUTINE
--- NOTE | 2016-10-03 11:26 | PCM.IRP ---
History of Present Illness - History of Present Illness History of Present Illness: IR requested to evaluate Mr. Carranza for drainage of septated hydrocele. Collection is not amenable to IR drainage. Recommend urologic evaluation. Objective - Vital Signs/Intake and Output Vital Signs (last 24 hours): Vital Signs - 24 hr 10/02/16 10/02/16 10/02/16 12:51 14:12 16:23 Temperature 98.1 F 98.1 F 98.3 F Pulse Rate 66 65 68 Respiratory 20 19 20 Rate Blood Pressure 106/68 102/63 111/72 O2 Sat by Pulse 96 97 97 Oximetry 10/02/16 10/02/16 10/03/16 17:00 17:27 01:00 Temperature 98.3 F 97.5 F L Pulse Rate 68 68 73 Respiratory 20 20 Rate Blood Pressure 111/72 111/72 107/67 O2 Sat by Pulse 97 100 Oximetry 10/03/16 10/03/16 05:44 07:38 Temperature 98.0 F Pulse Rate 61 50 L Respiratory 20 Rate Blood Pressure 130/79 115/59 L O2 Sat by Pulse 97 Oximetry - Medications Medications: Current Medications Acetaminophen (Tylenol 325mg Tab) 650 mg PO Q6 PRN PRN Reason: Pain, Mild (1-3) Acetaminophen (Tylenol 325mg Tab) 650 mg PO Q6 PRN PRN Reason: Fever >100.4 F Last Admin: 10/01/16 22:27 Dose: 650 mg Atomoxetine HCl (Strattera) 100 mg PO QAM [facility] Last Admin: 10/03/16 08:28 Dose: 100 mg Atorvastatin Calcium (Lipitor) 10 mg PO HS [facility] Last Admin: 10/02/16 21:57 Dose: 10 mg Dolutegravir Sodium (Tivicay) 50 mg PO DAILY [facility] Emtricitabine/Tenofovir (Truvada 200 Mg-300 Mg) 1 tab PO DAILY [facility] Last Admin: 10/03/16 08:28 Dose: 1 tab Enoxaparin Sodium (Lovenox) 40 mg SC DAILY [facility] PRN Reason: Protocol Last Admin: 10/03/16 08:29 Dose: 40 mg Doxycycline Hyclate 100 mg/ (Sodium Chloride) 100 mls @ 100 mls/hr IVPB Q12 [facility] Last Admin: 10/03/16 08:28 Dose: 100 mls/hr Piperacillin Sod/Tazobactam (Sod 4.5 gm/ Sodium Chloride) 100 mls @ 100 mls/hr IVPB Q8 [facility] Last Admin: 10/03/16 11:09 Dose: 100 mls/hr Ketorolac Tromethamine (Toradol) 30 mg IVP Q6 PRN PRN Reason: Pain, moderate (4-7) Last Admin: 10/03/16 05:48 Dose: 30 mg Metoprolol Tartrate (Lopressor) 25 mg PO Q12@0600,1800 [facility] Last Admin: 10/03/16 05:44 Dose: 25 mg Tramadol HCl (Ultram) 50 mg PO Q4 PRN PRN Reason: Pain, severe (8-10) Last Admin: 10/02/16 17:36 Dose: 50 mg - Labs Labs (last 24 hours): Laboratory Results - last 24 hr 10/01/16 10/01/16 10/03/16 17:20 19:10 05:30 WBC 9.6 RBC 3.98 L Hgb 12.7 Hct 37.5 MCV 94.1 H MCH 32.0 H MCHC 34.0 RDW 13.6 Plt Count 195 Sodium Potassium Chloride Carbon Dioxide Anion Gap BUN Creatinine Est GFR ( Amer) Est GFR (Non-Af Amer) Random Glucose Calcium Total Bilirubin AST ALT Alkaline Phosphatase C-React Prot High Sens > 15.00 H Total Protein Albumin Globulin Albumin/Globulin Ratio RPR Nonreactive 10/03/16 05:30 WBC RBC Hgb Hct MCV MCH MCHC RDW Plt Count Sodium 140 Potassium 3.9 Chloride 103 Carbon Dioxide 27 Anion Gap 14 BUN 15 Creatinine 1.1 Est GFR ( Amer) > 60 Est GFR (Non-Af Amer) > 60 Random Glucose 115 H Calcium 9.0 Total Bilirubin 0.6 AST 22 ALT 30 Alkaline Phosphatase 89 C-React Prot High Sens Total Protein 7.0 Albumin 3.5 Globulin 3.5 Albumin/Globulin Ratio 1.0 RPR
--- NOTE | 2016-10-03 11:51 | CP.PCM.PN ---
Subjective - Date & Time of Evaluation Date of Evaluation: 10/03/16 Time of Evaluation: 11:51 - Subjective Subjective: ID Note- Pt. seen and examined today. He states he feels much better and the right testicular swelling has improved tremendously. denies any fever or chills, denies any dysurea. he also states he was seen by urologist and was told to f/u with urologist as outpatient. Objective - Vital Signs/Intake and Output Vital Signs (last 24 hours): Temp Pulse Resp BP Pulse Ox 98.0 F 50 L 20 115/59 L 97 10/03/16 07:38 10/03/16 07:38 10/03/16 07:38 10/03/16 07:38 10/03/16 07:38 - Medications Medications: Current Medications Acetaminophen (Tylenol 325mg Tab) 650 mg PO Q6 PRN PRN Reason: Pain, Mild (1-3) Acetaminophen (Tylenol 325mg Tab) 650 mg PO Q6 PRN PRN Reason: Fever >100.4 F Last Admin: 10/01/16 22:27 Dose: 650 mg Atomoxetine HCl (Strattera) 100 mg PO QAM [facility] Last Admin: 10/03/16 08:28 Dose: 100 mg Atorvastatin Calcium (Lipitor) 10 mg PO HS [facility] Last Admin: 10/02/16 21:57 Dose: 10 mg Dolutegravir Sodium (Tivicay) 50 mg PO DAILY [facility] Emtricitabine/Tenofovir (Truvada 200 Mg-300 Mg) 1 tab PO DAILY [facility] Last Admin: 10/03/16 08:28 Dose: 1 tab Enoxaparin Sodium (Lovenox) 40 mg SC DAILY [facility] PRN Reason: Protocol Last Admin: 10/03/16 08:29 Dose: 40 mg Doxycycline Hyclate 100 mg/ (Sodium Chloride) 100 mls @ 100 mls/hr IVPB Q12 [facility] Last Admin: 10/03/16 08:28 Dose: 100 mls/hr Piperacillin Sod/Tazobactam (Sod 4.5 gm/ Sodium Chloride) 100 mls @ 100 mls/hr IVPB Q8 [facility] Last Admin: 10/03/16 11:09 Dose: 100 mls/hr Ketorolac Tromethamine (Toradol) 30 mg IVP Q6 PRN PRN Reason: Pain, moderate (4-7) Last Admin: 10/03/16 05:48 Dose: 30 mg Metoprolol Tartrate (Lopressor) 25 mg PO Q12@0600,1800 [facility] Last Admin: 10/03/16 05:44 Dose: 25 mg Tramadol HCl (Ultram) 50 mg PO Q4 PRN PRN Reason: Pain, severe (8-10) Last Admin: 10/02/16 17:36 Dose: 50 mg - Labs Labs: - Additional Findings Additional findings: - Constitutional Appears: No Acute Distress - Head Exam Head Exam: ATRAUMATIC - Eye Exam Eye Exam: EOMI, PERRL - ENT Exam ENT Exam: Normal Oropharynx - Neck Exam Neck exam: Positive for: Full Rom - Respiratory Exam Respiratory Exam: Clear to Auscultation Bilateral, NORMAL BREATHING PATTERN - Cardiovascular Exam Cardiovascular Exam: RRR, +S1, +S2 - GI/Abdominal Exam GI & Abdominal Exam: Normal Bowel Sounds, Soft Additional comments: NT, ND - Exam Additional comments: Right inguinal region swelling and right testicular swelling and minimal erythema much improved , no discharge (nurse present in room during exam). - Extremities Exam Extremities exam: Positive for: normal inspection - Neurological Exam Neurological exam: Alert, Oriented x 3 Laboratory Results - last 72 hr 10/01/16 10/01/16 10/01/16 11:10 11:10 11:19 WBC 21.3 H D RBC 4.18 L Hgb 13.3 Hct 39.2 MCV 93.9 MCH 31.9 H MCHC 34.0 RDW 14.0 Plt Count 203 MPV 7.8 Neut % (Auto) 81.7 H Lymph % (Auto) 10.5 L [place] % (Auto) 7.0 Eos % (Auto) 0.2 Baso % (Auto) 0.6 Neut # 17.4 H Lymph # 2.2 [place] # 1.5 H Eos # 0.0 Baso # 0.1 Neutrophils % (Manual) 79 H Band Neutrophils % 2 Lymphocytes % (Manual) 18 L Monocytes % (Manual) 1 Platelet Estimate Normal Large Platelets Present Poikilocytosis (manual Slight Anisocytosis (manual) Slight Stomatocytes Slight Sodium 136 Potassium 3.7 Chloride 100 Carbon Dioxide 28 Anion Gap 12 BUN 8 L Creatinine 0.9 Est GFR ( Amer) > 60 Est GFR (Non-Af Amer) > 60 Random Glucose 106 Calcium 8.8 Total Bilirubin 0.5 AST 14 L D ALT 27 Alkaline Phosphatase 98 C-React Prot High Sens Total Protein 7.4 Albumin 4.1 Globulin 3.3 Albumin/Globulin Ratio 1.2 Urine Color Yellow Urine Clarity Sl.cloudy Urine pH 6 Ur Specific [place] >= 1.030 Urine Protein 100 mg/dl Urine Glucose (UA) Neg Urine Ketones Negative Urine Blood Small Urine Nitrate Negative Urine Bilirubin Negative Urine Urobilinogen 0.2 Ur Leukocyte Esterase Small Urine RBC (Auto) 12 H Urine Microscopic WBC 26 H Urine Bacteria Rare RPR 10/01/16 10/01/16 10/02/16 17:20 19:10 05:30 WBC 18.2 H RBC 4.08 L Hgb 13.0 Hct 38.3 MCV 93.8 MCH 31.9 H MCHC 34.0 RDW 13.7 Plt Count 206 MPV 8.4 Neut % (Auto) 82.1 H Lymph % (Auto) 11.6 L [place] % (Auto) 5.5 Eos % (Auto) 0.6 Baso % (Auto) 0.2 Neut # 14.9 H Lymph # 2.1 [place] # 1.0 H Eos # 0.1 Baso # 0.0 Neutrophils % (Manual) Band Neutrophils % Lymphocytes % (Manual) Monocytes % (Manual) Platelet Estimate Large Platelets Poikilocytosis (manual Anisocytosis (manual) Stomatocytes Sodium Potassium Chloride Carbon Dioxide Anion Gap BUN Creatinine Est GFR ( Amer) Est GFR (Non-Af Amer) Random Glucose Calcium Total Bilirubin AST ALT Alkaline Phosphatase C-React Prot High Sens > 15.00 H Total Protein Albumin Globulin Albumin/Globulin Ratio Urine Color Urine Clarity Urine pH Ur Specific [place] Urine Protein Urine Glucose (UA) Urine Ketones Urine Blood Urine Nitrate Urine Bilirubin Urine Urobilinogen Ur Leukocyte Esterase Urine RBC (Auto) Urine Microscopic WBC Urine Bacteria RPR Nonreactive 10/02/16 10/03/16 10/03/16 05:30 05:30 05:30 WBC 9.6 RBC 3.98 L Hgb 12.7 Hct 37.5 MCV 94.1 H MCH 32.0 H MCHC 34.0 RDW 13.6 Plt Count 195 MPV Neut % (Auto) Lymph % (Auto) [place] % (Auto) Eos % (Auto) Baso % (Auto) Neut # Lymph # [place] # Eos # Baso # Neutrophils % (Manual) Band Neutrophils % Lymphocytes % (Manual) Monocytes % (Manual) Platelet Estimate Large Platelets Poikilocytosis (manual Anisocytosis (manual) Stomatocytes Sodium 138 140 Potassium 3.5 L 3.9 Chloride 100 103 Carbon Dioxide 32 H 27 Anion Gap 10 14 BUN 9 15 Creatinine 1.1 1.1 Est GFR ( Amer) > 60 > 60 Est GFR (Non-Af Amer) > 60 > 60 Random Glucose 110 115 H Calcium 8.9 9.0 Total Bilirubin 0.7 0.6 AST 19 22 ALT 27 30 Alkaline Phosphatase 106 89 C-React Prot High Sens Total Protein 7.4 7.0 Albumin 3.8 3.5 Globulin 3.6 3.5 Albumin/Globulin Ratio 1.1 1.0 Urine Color Urine Clarity Urine pH Ur Specific [place] Urine Protein Urine Glucose (UA) Urine Ketones Urine Blood Urine Nitrate Urine Bilirubin Urine Urobilinogen Ur Leukocyte Esterase Urine RBC (Auto) Urine Microscopic WBC Urine Bacteria RPR Microbiology 10/01/16 13:00 Blood Blood Culture - Preliminary NO GROWTH AFTER 48 HOURS 10/02/16 07:00 Blood Blood Culture - Preliminary NO GROWTH AFTER 24 HOURS 10/01/16 12:55 Urine Urine Culture - Final No Growth (<1,000 CFU/ML) Assessment and Plan (1) HIV (human immunodeficiency virus infection) Status: Acute (2) Acute epididymitis Status: Acute - Assessment and Plan (Free Text) Assessment: A/P- 51 year old male with HIV ( well controlled) , HTN admitted with right epididymitis and leukocytois. clinially much improved. afebrile. leukocytosis has resolved. blood and urine cx0 neg urine GC/chlamydia result still pending rpr-nonreactive plan- s/p 1 dose IM ceftriaxone for presumed GC. has completed also 3 days of IV zosyn and doxycycline by now. can be d/c home on oral doxycycline 100 mg BID for another 7 days. advised to avoid direct sun exposure while on doxycycline. advised to f/u with at [facility] nd to f/u his GC/chlmydia urine result. f/u with urologist. Pt. verbalizes full understanding of all above and agrees with above plan of care. all above d/w Dr. Toribio Balderas as well.
--- NOTE | 2016-10-03 15:14 | CP.PCM.DIS ---
Provider - Provider Date of Admission: 10/01/16 12:41 Attending physician: Alyson Almonte MD Time Spent in preparation of Discharge (in minutes): 30 Diagnosis - Discharge Diagnosis (1) Acute epididymitis Status: Acute Hospital Course - Lab Results Lab Results: Micro Results 10/01/16 13:00 Blood Blood Culture - Preliminary NO GROWTH AFTER 48 HOURS 10/02/16 07:00 Blood Blood Culture - Preliminary NO GROWTH AFTER 24 HOURS 10/01/16 12:55 Urine Urine Culture - Final No Growth (<1,000 CFU/ML) Most Recent Lab Values WBC 9.6 K/uL (4.8-10.8) 10/03/16 05:30 RBC 3.98 Mil/uL (4.40-5.90) L 10/03/16 05:30 Hgb 12.7 g/dL (12.0-18.0) 10/03/16 05:30 Hct 37.5 % (35.0-51.0) 10/03/16 05:30 MCV 94.1 fl (80.0-94.0) H 10/03/16 05:30 MCH 32.0 pg (27.0-31.0) H 10/03/16 05:30 MCHC 34.0 g/dL (33.0-37.0) 10/03/16 05:30 RDW 13.6 % (11.5-14.5) 10/03/16 05:30 Plt Count 195 K/uL (130-400) 10/03/16 05:30 MPV 8.4 fl (7.2-11.7) 10/02/16 05:30 Neut % (Auto) 82.1 % (50.0-75.0) H 10/02/16 05:30 Lymph % (Auto) 11.6 % (20.0-40.0) L 10/02/16 05:30 [place] % (Auto) 5.5 % (0.0-10.0) 10/02/16 05:30 Eos % (Auto) 0.6 % (0.0-4.0) 10/02/16 05:30 Baso % (Auto) 0.2 % (0.0-2.0) 10/02/16 05:30 Neut # 14.9 K/uL (1.8-7.0) H 10/02/16 05:30 Lymph # 2.1 K/uL (1.0-4.3) 10/02/16 05:30 [place] # 1.0 K/uL (0.0-0.8) H 10/02/16 05:30 Eos # 0.1 K/uL (0.0-0.7) 10/02/16 05:30 Baso # 0.0 K/uL (0.0-0.2) 10/02/16 05:30 Neutrophils % (Manual) 79 % (42-75) H 10/01/16 11:10 Band Neutrophils % 2 % (0-2) 10/01/16 11:10 Lymphocytes % (Manual) 18 % (20-50) L 10/01/16 11:10 Monocytes % (Manual) 1 % (0-10) 10/01/16 11:10 Platelet Estimate Normal (NORMAL) 10/01/16 11:10 Large Platelets Present 10/01/16 11:10 Poikilocytosis (manual Slight 10/01/16 11:10 Anisocytosis (manual) Slight 10/01/16 11:10 Stomatocytes Slight 10/01/16 11:10 Sodium 140 mmol/l (132-148) 10/03/16 05:30 Potassium 3.9 MMOL/L (3.6-5.0) 10/03/16 05:30 Chloride 103 mmol/L (98-107) 10/03/16 05:30 Carbon Dioxide 27 mmol/L (22-30) 10/03/16 05:30 Anion Gap 14 (10-20) 10/03/16 05:30 BUN 15 mg/dl (9-20) 10/03/16 05:30 Creatinine 1.1 mg/dL (0.8-1.5) 10/03/16 05:30 Est GFR ( Amer) > 60 10/03/16 05:30 Est GFR (Non-Af Amer) > 60 10/03/16 05:30 Random Glucose 115 mg/dL (75-110) H 10/03/16 05:30 Calcium 9.0 mg/dL (8.4-10.2) 10/03/16 05:30 Total Bilirubin 0.6 mg/dl (0.2-1.3) 10/03/16 05:30 AST 22 U/L (17-59) 10/03/16 05:30 ALT 30 U/L (21-72) 10/03/16 05:30 Alkaline Phosphatase 89 U/L (38-126) 10/03/16 05:30 C-React Prot High Sens > 15.00 mg/L (1.00-3.00) H 10/01/16 17:20 Total Protein 7.0 G/DL (6.3-8.2) 10/03/16 05:30 Albumin 3.5 g/dL (3.5-5.0) 10/03/16 05:30 Globulin 3.5 gm/dL (2.2-3.9) 10/03/16 05:30 Albumin/Globulin Ratio 1.0 (1.0-2.1) 10/03/16 05:30 Urine Color Yellow (YELLOW) 10/01/16 11:19 Urine Clarity Sl.cloudy (Clear) 10/01/16 11:19 Urine pH 6 (5.0-8.0) 10/01/16 11:19 Ur Specific [place] >= 1.030 (1.003-1.030) 10/01/16 11:19 Urine Protein 100 mg/dl mg/dL (NEGATIVE) 10/01/16 11:19 Urine Glucose (UA) Neg mg/dL (Normal) 10/01/16 11:19 Urine Ketones Negative mg/dL (NEGATIVE) 10/01/16 11:19 Urine Blood Small (NEGATIVE) 10/01/16 11:19 Urine Nitrate Negative (NEGATIVE) 10/01/16 11:19 Urine Bilirubin Negative (NEGATIVE) 10/01/16 11:19 Urine Urobilinogen 0.2 mg/dL (0.2-1.0) 10/01/16 11:19 Ur Leukocyte Esterase Small [place]/uL (Negative) 10/01/16 11:19 Urine RBC (Auto) 12 /hpf (0-3) H 10/01/16 11:19 Urine Microscopic WBC 26 /hpf (0-5) H 10/01/16 11:19 Urine Bacteria Rare (<OCC) 10/01/16 11:19 RPR Nonreactive (NONREACTIVE) 10/01/16 19:10 - Hospital Course Hospital Course: 51 yo M w PMH of HIV, HTN and HLD that was admitted with orchitis. Treated with zosyn for 2 days. All cultures have been negative. Was see by urologist and was told to F/U with urologist as outpatient. Patient seen by ID and cleared for discharge home with Doxycycline 100 mg PO BID for 7 days. Discharge medications. Doxycycline 100 mg PO BID for 7 days. Atorvastatin Calcium (Lipitor) 10 mg PO HS [facility] Dolutegravir Sodium (Tivicay) 50 mg PO DAILY [facility] Emtricitabine/Tenofovir (Truvada 200 Mg-300 Mg) 1 tab PO DAILY [facility] Metoprolol Tartrate (Lopressor) 25 mg PO Q12. Discharge Exam - Head Exam Head Exam: ATRAUMATIC, NORMOCEPHALIC - Eye Exam Eye Exam: EOMI, Normal appearance, PERRL - Neck Exam Neck exam: Full Rom - Respiratory Exam Respiratory Exam: Clear to PA & Lateral. absent: Chest Wall Tenderness - Cardiovascular Exam Cardiovascular Exam: RRR, +S1, +S2. absent: Systolic Murmur - GI/Abdominal Exam GI & Abdominal Exam: Normal Bowel Sounds, Soft. absent: Organomegaly, Tenderness - Exam Exam: Scrotal Swelling (Mild). absent: Testicular Tenderness, Uretheral Discharge Additional comments: Science Analyst in room (Cyril and Katerin: med students) - Extremities Exam Extremities exam: full ROM - Neurological Exam Neurological exam: Alert, CN II-XII Intact, Oriented x3 - Psychiatric Exam Psychiatric exam: Normal Mood Discharge Plan - Discharge Medications Prescriptions: Doxycycline Monohydrate 100 mg PO BID #14 tablet - Follow Up Plan Condition: FAIR Disposition: HOME/ ROUTINE Instructions: Epididymo-orchitis (DC) Additional Instructions: F/U with Dr Goldsmith at [facility]. F/U his GC/chlamydia urine result. F/U with Urologist. Referrals: [facility] [Outside] Erwin Portillo DO [Resident] -
--- NOTE | 2016-10-03 15:56 | CP.PCM.PN ---
Subjective - Date & Time of Evaluation Date of Evaluation: 10/03/16 Time of Evaluation: 07:15 - Subjective Subjective: 51 yo M with PMH of HIV and HTN is seen and examined today, states he feels much better, denies pain, fever, chills, dysuria, no discharge from penis. Objective - Vital Signs/Intake and Output Vital Signs (last 24 hours): Temp Pulse Resp BP Pulse Ox 98.0 F 50 L 20 115/59 L 97 10/03/16 07:38 10/03/16 07:38 10/03/16 07:38 10/03/16 07:38 10/03/16 07:38 - Medications Medications: Current Medications Acetaminophen (Tylenol 325mg Tab) 650 mg PO Q6 PRN PRN Reason: Pain, Mild (1-3) Acetaminophen (Tylenol 325mg Tab) 650 mg PO Q6 PRN PRN Reason: Fever >100.4 F Last Admin: 10/01/16 22:27 Dose: 650 mg Atomoxetine HCl (Strattera) 100 mg PO QAM [facility] Last Admin: 10/03/16 08:28 Dose: 100 mg Atorvastatin Calcium (Lipitor) 10 mg PO HS [facility] Last Admin: 10/02/16 21:57 Dose: 10 mg Emtricitabine/Tenofovir (Truvada 200 Mg-300 Mg) 1 tab PO DAILY [facility] Last Admin: 10/03/16 08:28 Dose: 1 tab Enoxaparin Sodium (Lovenox) 40 mg SC DAILY [facility] PRN Reason: Protocol Last Admin: 10/03/16 08:29 Dose: 40 mg Home Med (Patient's Own Medication) 1 unit PO DAILY [facility] Doxycycline Hyclate 100 mg/ (Sodium Chloride) 100 mls @ 100 mls/hr IVPB Q12 [facility] Last Admin: 10/03/16 08:28 Dose: 100 mls/hr Piperacillin Sod/Tazobactam (Sod 4.5 gm/ Sodium Chloride) 100 mls @ 100 mls/hr IVPB Q8 [facility] Last Admin: 10/03/16 11:09 Dose: 100 mls/hr Ketorolac Tromethamine (Toradol) 30 mg IVP Q6 PRN PRN Reason: Pain, moderate (4-7) Last Admin: 10/03/16 05:48 Dose: 30 mg Metoprolol Tartrate (Lopressor) 25 mg PO Q12@0600,1800 [facility] Last Admin: 10/03/16 05:44 Dose: 25 mg Tramadol HCl (Ultram) 50 mg PO Q4 PRN PRN Reason: Pain, severe (8-10) Last Admin: 10/02/16 17:36 Dose: 50 mg - Labs Labs: 10/03/16 05:30 10/03/16 05:30 - Constitutional Appears: Well, Non-toxic, No Acute Distress - Head Exam Head Exam: ATRAUMATIC, NORMOCEPHALIC - Eye Exam Eye Exam: EOMI, Normal appearance, PERRL - Neck Exam Neck Exam: Full ROM. absent: Lymphadenopathy - Respiratory Exam Respiratory Exam: Clear to Ausculation Bilateral. absent: Chest Wall Tenderness - Cardiovascular Exam Cardiovascular Exam: REGULAR RHYTHM, +S1, +S2. absent: Murmur - GI/Abdominal Exam GI & Abdominal Exam: Soft, Normal Bowel Sounds. absent: Tenderness, Organomegaly
--- NOTE | 2016-10-04 10:07 | PQF SEPSIS ---
This form is a permanent part of the medical record Dr GUZMÁN, Can you please confirm if Dx. of SEPSIS was RULED IN or OUT. Per PN of 10/02 documentation states - " Epididyoorchitis; Sepsis resolved, afebrile- spiked fever last night 101.2- leukocytosis improving (18 today)." No documentation of Sepsis in H&P or in Discharge Summary. Clarification of your documentation is requested to better reflect the severity of illness and intensity of treatment of your patient. Indicators present [] Temp < 96.8 or > 100.4 [] WBC count > 12,000/mm3 or <000/mm3 or 10% immature neutrophils [] Heart Rate > 90 [] Respiratory Rate > 20 [] Fever or hypothermia [] Chills [] Positive blood cultures [] Hypotension [] Metabolic acidosis (Elevated lactate level, anion gap or reduced blood pH) [] Acute confusion /Altered Mental Status [] Shock [] Other: [] Location in the medical record that reflects the above clinical findings: [] Treatment Provided: [] PHYSICIAN'S RESPONSE Based on your medical judgment of the clinical indicators outlined above, are you treating this patient for a known or suspected: [] Sepsis / Septicemia Please specify organism if known [] [] SIRS (Systemic Inflammatory Response Syndrome) [] Severe Sepsis (Sepsis with Associated Organ Dysfunction) [] Fever of Unknown Origin [] Other, please indicate: [] [] If Unable to Determine, please check the box, sign and date. Present On Admission (POA) Indicator: [] Present at the time of admission [] Not present at the time of admission [] Clinically Undetermined In responding to this query, please exercise your independent professional judgment. The fact that a question is asked does not imply that any particular answer is desired or expected. Thank you for your clarification on this documentation. If you have any questions please call:[ ] * Thank you, [ ]HOLLIE GARIBAY assistant athletic trainer SYLWIA
== END 2016-10-03 17:00 | disposition home or self-care (01) | DRG 872 ==
LOC: H.ER 09:30 → H.ERHOLD 12:41 → H.TEL 14:21 → H.MEDSURG1 10-02 14:35
PROVIDERS: ADMIT Family Medicine Geriatric Medicine; ATTEND Family Medicine Geriatric Medicine
DX: A41.9 Sepsis, unspecified organism (principal); N45.3 Epididymo-orchitis; I10 Essential (primary) hypertension; N43.3 Hydrocele, unspecified; Z21 Asymptomatic human immunodeficiency virus [HIV] infection status; D72.829 Elevated white blood cell count, unspecified; E78.5 Hyperlipidemia, unspecified; E78.00 Pure hypercholesterolemia, unspecified; K29.70 Gastritis, unspecified, without bleeding; F32.9 Major depressive disorder, single episode, unspecified; F17.210 Nicotine dependence, cigarettes, uncomplicated; Z86.19 Personal history of other infectious and parasitic diseases; Z88.1 Allergy status to other antibiotic agents; Z88.2 Allergy status to sulfonamides

== ENCOUNTER 2017-07-10 18:39 | Emergency (ER) | payer MEDICARE, OTHER ==
[2017-07-10 18:39] VITALS: BMI 31.8
[2017-07-10] MEDS ORDERED: Piperacillin/Tazobact 3.375 GM in Sodium Chloride 0.9% 100 ML IV STA (19:48)
[2017-07-10] MEDS ORDERED: Piperacillin/Tazobact 3.375 gm Inj IVPB ONE (19:57)
[2017-07-10 20:25] LABS: BASO # 0.1 K/uL (0.0-0.2); BASO % 1.2 % (0.0-2.0); EOS # 0.4 K/uL (0.0-0.7); EOS % 3.8 % (0.0-4.0); HEMOGLOBIN 12.2 g/dL (12.0-18.0); LYMPH % 32.2 % (20.0-40.0); MEAN CORPUSCULAR HEMOGLOBIN 31.2 pg (27.0-31.0); MEAN CORPUSCULAR HGB CONC 33.9 g/dL (33.0-37.0); MONO # 0.6 K/uL (0.0-0.8); MONO % 6.4 % (0.0-10.0); NEUT # 5.3 K/uL (1.8-7.0); NEUT % 56.4 % (50.0-75.0); RBC 3.92 Mil/uL (4.40-5.90); RED CELL DISTRIBUTION WIDTH 13.8 % (11.5-14.5); WHITE BLOOD COUNT 9.5 K/uL (4.8-10.8)
[2017-07-10 20:33] LABS: INR 1.2 (0.9-1.2); PARTIAL THROMBOPLASTIN TIME 30.9 Seconds (25.6-37.1); PROTHROMBIN TIME 12.8 Seconds (9.8-13.1)
[2017-07-10 20:37] LABS: ALB/GLOB RATIO 0.8 (1.0-2.1); ALBUMIN 3.6 g/dL (3.5-5.0); ALT/SGPT 31 U/L (21-72); AST/SGOT 31 U/L (17-59); BLOOD UREA NITROGEN 11 mg/dl (9-20); CALCIUM 8.3 mg/dL (8.4-10.2); GFR AFRICAN-AMERICAN > 60; GFR NON-AFRICAN AMERICAN > 60
--- NOTE | 2017-07-10 20:42 | ED PDOC ---
HPI: Male Pain Time Seen by Provider: 07/10/17 19:21 Chief Complaint (Nursing): Abnormal Skin Integrity Chief Complaint (Provider): Abnormal Skin Integrity History Per: Patient History/Exam Limitations: no limitations Onset/Duration Of Symptoms: Days Current Symptoms Are (Timing): Still Present Severity: None Associated Symptoms: Fever (low grade). denies: Vomiting, Diarrhea Additional Complaint(s): 52 year old [place] male with a past medical history of HIV, presents to the ED with complaints of left perirectal abscess. Patient reports he noticed he had swelling on the left perirectal region yesterday as well as a yellow fluid leakage associated with a low grade fever. Patient states he has had similar abscess in the past on the right side. Denies vomiting, diarrhea, cough, shortness of breath. PMD: Dr. Josef Goldsmith Past Medical History Reviewed: Historical Data Vital Signs: Last Vital Signs Temp 98.3 F 07/10/17 18:46 Pulse 71 07/10/17 18:46 Resp 16 07/10/17 18:46 BP 107/76 07/10/17 18:46 Pulse Ox 96 07/10/17 18:46 - Medical History PMH: Depression, Gastritis, HIV, HTN, Hypercholesterolemia, Sexually Transmitted Disease (SYPHILIS, HSV) Denies: Chronic Kidney Disease - Surgical History Surgical History: No Surg Hx - Family History Family History: States: Unknown Family Hx - Social History Current smoker - smoking cessation education provided: No Alcohol: None Drugs: Denies - Immunization History Hx Tetanus Toxoid Vaccination: No Hx Influenza Vaccination: No - Home Medications Home Medications: Ambulatory Orders Medication Instructions Recorded Dolutegravir Sodium [Tivicay] 50 mg PO DAILY 07/19/14 Emtricitabine/Tenofovir Diso 1 tab PO DAILY 07/19/14 [Truvada 200 MG-300 MG] Metoprolol Tartrate [Lopressor] 25 mg PO Q12H 10/01/16 Omeprazole 20 mg PO DAILY 10/01/16 Atorvastatin [Lipitor] 10 mg PO HS tab 10/03/16 Clindamycin [Cleocin] 300 mg PO Q6 #40 cap 07/10/17 Dextroamphetamine/Amphetamine 30 mg PO DAILY 07/10/17 [Adderall 30 mg Tablet] traMADol [Ultram] 50 mg PO Q6 #12 tab 05/23/18 - Allergies Allergies/Adverse Reactions: Allergies Allergy/AdvReac Type Severity Reaction Status Date / Time ciprofloxacin [From Cipro] Allergy RASH Verified 10/01/16 09:33 ciprofloxacin HCl Allergy RASH Verified 10/01/16 09:33 [From Cipro] Sulfa (Sulfonamide Allergy RASH Verified 10/01/16 09:33 Antibiotics) Review of Systems ROS Statement: Except As Marked, All Systems Reviewed And Found Negative Constitutional: Positive for: Fever (low grade) Respiratory: Negative for: Cough, Shortness of Breath Gastrointestinal: Negative for: Vomiting, Diarrhea Skin: Positive for: Other (left perirectal abscess, ) Physical Exam - Reviewed Nursing Documentation Reviewed: Yes Vital Signs Reviewed: Yes - Physical Exam Appears: Positive for: Non-toxic, No Acute Distress Head Exam: Positive for: ATRAUMATIC, NORMOCEPHALIC Skin: Positive for: Normal Color, Warm, Dry Eye Exam: Positive for: Normal appearance, EOMI, PERRL ENT: Positive for: Normal ENT Inspection Neck: Positive for: Normal, Painless ROM, Supple Cardiovascular/Chest: Positive for: Regular Rate, Rhythm. Negative for: Murmur Respiratory: Positive for: Normal Breath Sounds. Negative for: Respiratory Distress Gastrointestinal/Abdominal: Positive for: Normal Exam, Soft. Negative for: Tenderness Back: Positive for: Normal Inspection. Negative for: L CVA Tenderness, R CVA Tenderness, Vertebral Tenderness Rectal: Positive for: Tenderness (to left perirectal surface), Other (swelling to left perirectal surface, scant white drainage.) Extremity: Positive for: Normal ROM. Negative for: Pedal Edema, Deformity Neurologic/Psych: Positive for: Alert, Oriented. Negative for: Motor/Sensory Deficits - Laboratory Results Result Diagrams: 07/10/17 20:10 07/10/17 20:10 - ECG O2 Sat by Pulse Oximetry: 96 (RA) Pulse Ox Interpretation: Normal Medical Decision Making Medical Decision Making: Time: 2009 Impression: 52 year old male with left perirectal abscess Plan: -- CMP -- LACT ACID, PLASMA -- CBC with differentials -- PTT -- Prothrombin Time -- Toradol 15 mg IVP -- Zosyn 3.375 gm -- Blood Culture -- IV Heplock Insertion -- Labs reviewed and revealed no clinically significant abnormalities. -- Patient evaluated by surgical technician, Dr. Brooks who discussed case with attending, Dr. Muhammad. Patient is stable for discharge with a diagnosis of perirectal abscess. Patient will be given referral to follow up with Dr. Muhammad for further evaluation. Scribe Attestation: Documented by Vanda Oliver, acting as a scribe for Dr. Popeye Yañez MD. Provider Scribe Attestation: All medical record entries made by the Scribe were at my direction and personally dictated by me. I have reviewed the chart and agree that the record accurately reflects my personal performance of the history, physical exam, medical decision making, and the department course for this patient. I have also personally directed, reviewed, and agree with the discharge instructions and disposition. Disposition - Clinical Impression Clinical Impression: Maryam-rectal abscess - Disposition Referrals: Carl Muhammad MD [Staff Provider] - Disposition: Routine/Home Disposition Time: 21:30 Condition: STABLE Prescriptions: Clindamycin [Cleocin] 300 mg PO Q6 #40 cap traMADol [Ultram] 50 mg PO Q6 #12 tab Instructions: Anal Abscess and Fistula, How to Do a Sitz Bath Forms: [facility] (Cameroonian)
--- NOTE | 2017-07-10 21:48 | CP.PCM.CON ---
History of Present Illness - History of Present Illness History of Present Illness: General Surgery Consult Re: perineal abscess HPI: 52M presents to the ED complaining of Left perirectal abscess. He noticed he had swelling on the left perirectal region yesterday in the shower and had some yellow drainage with a subjective fever and chills. He has had similar abscess in the past on the right side that required surgical drainage. Denies vomiting, diarrhea, constipation, cough, shortness of breath, melena, hematochezia. Last BM was this AM and was non-painful. No other complaints. PMH: HIV (controlled), HTN, HLD PSH: Perineal abscess drainage, vericose vein stripping SH: Smokes ~ 1/2 PPD. Social EtOH, rare THC use All: Cipro, sulfa Meds: See MAR Review of Systems - Review of Systems All systems: reviewed and no additional remarkable complaints except (as per HPI ) Past Patient History - Infectious Disease Hx of Infectious Diseases: None - Past Medical History & Family History Past Medical History?: Yes - Past Social History Alcohol: None Drugs: Denies - CARDIAC Hx Hypercholesterolemia: Yes Hx Hypertension: Yes - PULMONARY Hx Respiratory Disorders: No - NEUROLOGICAL Hx Neurological Disorder: No - HEENT Hx HEENT Problems: No - RENAL Hx Chronic Kidney Disease: No - ENDOCRINE/METABOLIC Hx Endocrine Disorders: No - HEMATOLOGICAL/ONCOLOGICAL Hx Human Immunodeficiency Virus (HIV): Yes - INTEGUMENTARY Hx Dermatological Problems: No - MUSCULOSKELETAL/RHEUMATOLOGICAL Hx Falls: No - GASTROINTESTINAL Hx Gastritis: Yes - GENITOURINARY/GYNECOLOGICAL Hx Sexually Transmitted Disorders: Yes (SYPHILIS, HSV) - PSYCHIATRIC Hx Depression: Yes - SURGICAL HISTORY Hx Surgeries: Yes Hx Angiogram: Yes ([facility] 07/21/14) Other/Comment: STRIPPING & LIGATION OF VEINS RT & LT. abscress drainage - ANESTHESIA Hx Anesthesia: Yes Hx Anesthesia Reactions: No Hx Malignant Hyperthermia: No Meds Home Medications: Home Medication List Medication Instructions Recorded Confirmed Type Clindamycin [Cleocin] 300 mg PO Q6 #40 cap 07/10/17 Rx traMADol [Ultram] 50 mg PO Q6 #12 tab 07/10/17 Rx Allergies/Adverse Reactions: Allergies Allergy/AdvReac Type Severity Reaction Status Date / Time ciprofloxacin [From Cipro] Allergy RASH Verified 10/01/16 09:33 ciprofloxacin HCl Allergy RASH Verified 10/01/16 09:33 [From Cipro] Sulfa (Sulfonamide Allergy RASH Verified 10/01/16 09:33 Antibiotics) Physical Exam - Constitutional Appears: Non-toxic, No Acute Distress - Head Exam Head Exam: ATRAUMATIC, NORMOCEPHALIC - Eye Exam Eye Exam: EOMI. absent: Scleral icterus - ENT Exam ENT Exam: Mucous Membranes Moist Additional comments: trachea midline - Neck Exam Neck exam: Positive for: Full Rom - Respiratory Exam Respiratory Exam: NORMAL BREATHING PATTERN. absent: Respiratory Distress - Cardiovascular Exam Cardiovascular Exam: RRR, +S1, +S2 - GI/Abdominal Exam GI & Abdominal Exam: Soft. absent: Distended, Tenderness - Rectal Exam Rectal Exam: NORMAL INSPECTION (no TTP, no fissure, no palpable mass or fistula opening. normal tone) Additional comments: Perineum: ~1cm open wound just to the L of midline perineum, no drainage able to be expressed. Mild erythema and edema. TTP directly beneath opening - Extremities Exam Extremities exam: Positive for: normal capillary refill, pedal pulses present - Back Exam Back exam: absent: CVA tenderness (L), CVA tenderness (R) - Neurological Exam Neurological exam: Alert, Oriented x3 - Skin Skin Exam: Dry, Warm Results - Vital Signs Recent Vital Signs: Last Vital Signs Temp 98.3 F 07/10/17 18:46 Pulse 71 07/10/17 18:46 Resp 16 07/10/17 18:46 BP 107/76 07/10/17 18:46 Pulse Ox 96 07/10/17 20:49 - Labs Result Diagrams: 07/10/17 20:10 07/10/17 20:10 Labs: Laboratory Results - last 24 hr 07/10/17 07/10/17 07/10/17 20:10 20:10 20:10 WBC 9.5 RBC 3.92 L Hgb 12.2 Hct 36.1 MCV 92.0 D MCH 31.2 H MCHC 33.9 RDW 13.8 Plt Count 189 MPV 8.0 Neut % (Auto) 56.4 Lymph % (Auto) 32.2 Pitt % (Auto) 6.4 Eos % (Auto) 3.8 Baso % (Auto) 1.2 Neut # (Auto) 5.3 Lymph # (Auto) 3.0 Pitt # (Auto) 0.6 Eos # (Auto) 0.4 Baso # (Auto) 0.1 PT INR APTT Sodium 142 Potassium 3.7 Chloride 103 Carbon Dioxide 28 Anion Gap 15 BUN 11 Creatinine 1.1 Est GFR ( Amer) > 60 Est GFR (Non-Af Amer) > 60 Random Glucose 94 Lactic Acid 0.8 Calcium 8.3 L Total Bilirubin 0.3 AST 31 ALT 31 Alkaline Phosphatase 78 Total Protein 8.3 H Albumin 3.6 Globulin 4.7 H Albumin/Globulin Ratio 0.8 L 07/10/17 20:10 WBC RBC Hgb Hct MCV MCH MCHC RDW Plt Count MPV Neut % (Auto) Lymph % (Auto) Pitt % (Auto) Eos % (Auto) Baso % (Auto) Neut # (Auto) Lymph # (Auto) Pitt # (Auto) Eos # (Auto) Baso # (Auto) PT 12.8 INR 1.2 APTT 30.9 Sodium Potassium Chloride Carbon Dioxide Anion Gap BUN Creatinine Est GFR ( Amer) Est GFR (Non-Af Amer) Random Glucose Lactic Acid Calcium Total Bilirubin AST ALT Alkaline Phosphatase Total Protein Albumin Globulin Albumin/Globulin Ratio Assessment & Plan - Assessment and Plan (Free Text) Assessment: 52M with draining perineal abscess Plan: Ok for DC from a surgical standpoint. Sitz baths after BMs and in the morning and evening Clindamycin PO x 1 week Follow up With Dr. Muhammad in 1 week Return to ED if symptoms worsen D/W Dr. Jb Brooks PGY4
[2017-07-10 21:55] VITALS: BP 116/73; PULSE 79; RESP 15; TEMP 98.8
[2017-07-10 22:18] VITALS: O2SAT 96
== END 2017-07-10 21:55 | disposition home or self-care (01) ==
LOC: H.ER 18:39
DX: K61.1 Rectal abscess (principal); E78.00 Pure hypercholesterolemia, unspecified; F32.9 Major depressive disorder, single episode, unspecified; I10 Essential (primary) hypertension; L02.215 Cutaneous abscess of perineum
CPT/HCPCS: 80053; 83605; 85025; 85610; 85730; 87040; 96374; 96375; 99283; J1885; J2270; J2543

== ENCOUNTER 2018-04-28 13:19 | Emergency (ER) | payer MEDICARE ==
[2018-04-28 13:20] VITALS: BMI 31.8
--- NOTE | 2018-04-28 14:01 | ED PDOC ---
HPI: Abdomen Time Seen by Provider: 04/28/18 13:50 Chief Complaint (Nursing): GI Problem Chief Complaint (Provider): Vomiting/diarrhea History Per: Patient History/Exam Limitations: no limitations Onset/Duration Of Symptoms: Days Outside of [place] travel?: No Current Symptoms Are (Timing): Still Present Severity: Moderate Pain Scale Rating Of: 6 Location Of Pain/Discomfort: Diffuse Quality Of Discomfort: Unable To Describe Associated Symptoms: Nausea, Vomiting, Diarrhea Exacerbating Factors: Food Alleviating Factors: None Last Bowel Movement: Today Additional History Per: Patient, Family Additional Complaint(s): 52 y/o male with h/o HIV and HTN presents to the ED with 6 days history of nausea/vomiting/diarrhea. Pt reports he has had one episode of vomiting today and 4 episodes of diarrhea. Pt denies blood in emesis or diarrhea. Pt reports abdominal pain prior to having to having bowel movement with improvement after bowel movement. Pt denies fever and urinary complaints. Past Medical History Reviewed: Historical Data, Nursing Documentation, Vital Signs Vital Signs: Last Vital Signs Temp 98.7 F 04/28/18 13:21 Pulse 74 04/28/18 13:21 Resp 18 04/28/18 13:21 BP 121/72 04/28/18 13:21 Pulse Ox 99 04/28/18 13:21 - Medical History PMH: Depression, Gastritis, HIV, HTN, Hypercholesterolemia, Sexually Transmitted Disease (SYPHILIS, HSV) Denies: Chronic Kidney Disease - Surgical History Surgical History: Endoscopy - Family History Family History: States: Unknown Family Hx - Immunization History Hx Tetanus Toxoid Vaccination: No Hx Influenza Vaccination: No - Home Medications Home Medications: Ambulatory Orders Medication Instructions Recorded Dolutegravir Sodium [Tivicay] 50 mg PO DAILY 07/19/14 Emtricitabine/Tenofovir Diso 1 tab PO DAILY 07/19/14 [Truvada 200 MG-300 MG] Metoprolol Tartrate [Lopressor] 25 mg PO Q12H 10/01/16 Omeprazole 20 mg PO DAILY 10/01/16 Atorvastatin [Lipitor] 10 mg PO HS tab 10/03/16 Aspirin 1 tab PO DAILY 04/10/18 Chlorthalidone [Hygroton] 1 tab PO DAILY 04/10/18 Dextroamphetamine/Amphetamine 1 tab PO DAILY 04/10/18 [Adderall 30 mg Tablet] traZODone [Desyrel] 1 tab PO DAILY 04/10/18 Famotidine [Pepcid] 20 mg PO HS #30 tab 04/28/18 Loperamide [Imodium] 4 mg PO ONCE PRN #6 cap 04/28/18 Ondansetron ODT [Zofran ODT] 4 mg PO Q6H #6 odt 04/28/18 - Allergies Allergies/Adverse Reactions: Allergies Allergy/AdvReac Type Severity Reaction Status Date / Time ciprofloxacin [From Cipro] Allergy RASH Verified 02/12/18 07:59 ciprofloxacin HCl Allergy RASH Verified 02/12/18 07:59 [From Cipro] Sulfa (Sulfonamide Allergy RASH Verified 02/12/18 07:59 Antibiotics) sulfamethoxazole Allergy RASH Verified 02/12/18 07:59 [From Bactrim] trimethoprim [From Bactrim] Allergy RASH Verified 02/12/18 07:59 Review of Systems ROS Statement: Except As Marked, All Systems Reviewed And Found Negative Constitutional: Positive for: Weakness (generalized weakness) Gastrointestinal: Positive for: Nausea, Vomiting, Diarrhea Physical Exam - Reviewed Nursing Documentation Reviewed: Yes (Di) Vital Signs Reviewed: Yes - Physical Exam Appears: Positive for: Non-toxic, No Acute Distress, Uncomfortable Head Exam: Positive for: ATRAUMATIC, NORMAL INSPECTION, NORMOCEPHALIC Skin: Positive for: Normal Color, Warm, Dry Eye Exam: Positive for: Normal appearance ENT: Positive for: Normal ENT Inspection Neck: Positive for: Normal Cardiovascular/Chest: Positive for: Regular Rate, Rhythm Respiratory: Positive for: Normal Breath Sounds Pulses-Radial (L): 2+ Pulses-Radial (R): 2+ Gastrointestinal/Abdominal: Positive for: Bowel Sounds (hyperactive), Soft, Tenderness (diffuse abd pain, no point tenderness. ) Male Genital Exam: Positive for: other (boil to left groin. no redness surrounding area, mild tenderness pt reports boil recurrent. pt problems urinating and denies testicular pain.) Back: Positive for: Normal Inspection Extremity: Positive for: Normal ROM Lymphatic: Positive for: Normal Exam Comments: Pt verbalizes CD4 count is undetectable. - Laboratory Results Result Diagrams: 04/28/18 14:36 04/28/18 14:36 - ECG ECG: Positive for: Viewed By Me ECG Rhythm: Positive for: Sinus Rhythm Interpretation Of ECG: EKG reviewed and Interpreted by Dr. Mccall Rate: 68 O2 Sat by Pulse Oximetry: 99 Pulse Ox Interpretation: Normal - Progress ED Course And Treament: -CBC -CMP -Lipase -Toradol -Pepcid -0.9NS 1000cc repeat vitals: temp: 98.3 hr:67 bp:108/64 o2sat: 98% rm air Upon re-evaluation pt verbalizes feeling better, continued diffused tenderness, verbalizes it feels "sore". Pt continues to feel bodyaches, lower back pain, added influenza and Urine dip to tx course. Case discussed with Dr. Mccall, agreed with tx course. Influenza negative, udip is also negative. Clinical findings discussed with patient. Pt tolerated PO. Clinical impression gastroentritis. Pt given Rx for Zofran 4mg ODT q6h PRN n/v, Pepcid 20mg PO Qhs and Loperamide as directed. Pt given diet education. Follow-up with PMD within 1 wk. Pt instructed to return to ed if symptoms worsen or unable to tolerate PO. Pt verbalizes understanding. Re-evaluation Time: 15:45 (second re-eval at 1715) Condition: Re-examined, Improved Disposition - Clinical Impression Clinical Impression: Gastroenteritis - Patient ED Disposition Is Patient to be Admitted: No - Disposition Referrals: Josef Goldsmith MD [Staff Provider] - Disposition: Routine/Home Disposition Time: 17:15 Condition: IMPROVED Prescriptions: Famotidine [Pepcid] 20 mg PO HS #30 tab Loperamide [Imodium] 4 mg PO ONCE PRN #6 cap PRN Reason: Diarrhea Ondansetron ODT [Zofran ODT] 4 mg PO Q6H #6 odt Instructions: Diarrhea in Adolescents and Adults, Gastritis (DC) Forms: [employer] (Icelandic)
[2018-04-28] MEDS: Sodium Chloride 0.9% 1,000 ML IV SCH ×2 (14:38→16:11)
[2018-04-28 14:59] LABS: BASO # 0.1 K/uL (0.0-0.2); BASO % 0.8 % (0.0-2.0); EOS # 0.2 K/uL (0.0-0.7); EOS % 1.7 % (0.0-4.0); HEMOGLOBIN 12.7 g/dL (12.0-18.0); LYMPH # 2.7 K/uL (1.0-4.3); LYMPH % 30.2 % (20.0-40.0); MEAN CELL VOLUME 91.5 fl (80.0-94.0); MEAN CORPUSCULAR HEMOGLOBIN 31.1 pg (27.0-31.0); MEAN PLATELET VOLUME 7.7 fl (7.2-11.7); MONO # 1.1 K/uL (0.0-0.8); MONO % 12.1 % (0.0-10.0); NEUT % 55.2 % (50.0-75.0); NRBC % 0.5 % (0.0-0.0); RBC 4.08 Mil/uL (4.40-5.90); RED CELL DISTRIBUTION WIDTH 14.3 % (11.5-14.5); WHITE BLOOD COUNT 9.1 K/uL (4.8-10.8)
[2018-04-28 15:11] LABS: ALB/GLOB RATIO 1.1 (1.0-2.1); ALBUMIN 3.9 g/dL (3.5-5.0); ALT/SGPT 18 U/L (21-72); AST/SGOT 28 U/L (17-59); BLOOD UREA NITROGEN 13 mg/dl (9-20); GFR NON-AFRICAN AMERICAN > 60; LIPASE 98 U/L (23-300)
[2018-04-28 17:58] VITALS: BP 113/74; PULSE 72; RESP 17; TEMP 98.4; O2SAT 100
--- NOTE | 2018-04-29 09:08 | CARD ---
APPROVED REPORT Date of service: 04/28/2018 EKG Measurement Heart [id number] <Conclusion> Normal sinus rhythm ST elevation, probably due to early repolarization or pericarditis or acute injury Abnormal ECG
== END 2018-04-28 17:56 | disposition home or self-care (01) ==
LOC: H.ER 13:19
DX: K52.9 Noninfective gastroenteritis and colitis, unspecified (principal); Z86.59 Personal history of other mental and behavioral disorders; I10 Essential (primary) hypertension; Z88.2 Allergy status to sulfonamides; Z88.1 Allergy status to other antibiotic agents; Z79.899 Other long term (current) drug therapy
CPT/HCPCS: 80053; 83690; 84484; 85025; 87804; 93005; 96361; 96374; 96375; 99284; J1885; J2405; J7030